=== PATIENT | male | born 1980 | race Caucasian/White ===

== ENCOUNTER 2023-04-29 18:06 | Emergency (ER) | payer OTHER, MEDICAID, SELFPAY ==
[2023-04-29 18:19] VITALS: PULSE 83; RESP 16; TEMP 36.4; O2SAT 98; BMI 30.2
--- NOTE | 2023-04-29 19:03 | CTR_ITS ---
PROCEDURE INFORMATION: Exam: CT Abdomen And Pelvis Without Contrast Exam date and time: 04/29/2023 7:14 PM Age: 42 years old Clinical indication: Abdominal pain; Flank; Left; Additional info: L flank pain TECHNIQUE: Imaging protocol: Computed tomography of the abdomen and pelvis without contrast. Radiation optimization: All CT scans at this facility use at least one of these dose optimization techniques: automated exposure control; mA and/or kV adjustment per patient size (includes targeted exams where dose is matched to clinical indication); or iterative reconstruction. COMPARISON: No relevant prior studies available. RADIATION DOSE METRICS: Total DLP (mGy-cm): 728 FINDINGS: Lungs: Emphysematous changes. Bilateral atelectasis. Liver: Normal. No mass. Gallbladder and bile ducts: Normal. No calcified stones. No ductal dilation. Pancreas: Normal. No ductal dilation. Spleen: Spleen enlarged to 14.8 cm. Adrenal glands: Normal. No mass. Kidneys and ureters: Normal. No hydronephrosis. Stomach and bowel: Prominent fluid in the small bowel may reflect an enteritis. Diverticulosis without diverticulitis. Appendix: No evidence of appendicitis. Intraperitoneal space: Unremarkable. No free air. No significant fluid collection. Vasculature: Unremarkable. No abdominal aortic aneurysm. Lymph nodes: Scattered subcentimeter short axis nonspecific inguinal lymph nodes bilaterally. Urinary bladder: Unremarkable as visualized. Reproductive: Unremarkable as visualized. Bones/joints: Unremarkable. No acute fracture. Soft tissues: Unremarkable. CT/CT kidney stone [id number] IMPRESSION: 1. Prominent fluid in the small bowel may reflect an enteritis. 2. Emphysematous changes. 3. Bilateral atelectasis. 4. Spleen enlarged to 14.8 cm. 5. Diverticulosis without diverticulitis. 6. Scattered subcentimeter short axis nonspecific inguinal lymph nodes bilaterally.
--- NOTE | 2023-04-29 19:04 | ED_ITS ---
HPI - Back Pain/Injury 2 General: Chief Complaint: Back Pain/Injury Stated Complaint: back pain low left Time Seen by Provider: 04/29/23 18:08 Source: patient Mode of arrival: ambulatory Limitations: no limitations History of Present Illness: Patient is a 42-year-old male presents to ED today with complaint of left flank pain over the past 2 to 3 weeks. Patient states at some point he was seen at a facility [facility] and had blood work, UA, and x-ray imaging performed. Patient states his UA showed hematuria. He states he is still awaiting results of the x-rays. He states they scheduled him for a CT scan to further evaluate for the presence of a possible urolithiasis but he has yet to get this done. Patient states he continues to have discomfort. He is not complaining of dysuria, frequency, urgency or any visible hematuria. Denies nausea or vomiting. He is not having any midline back pain or radicular symptoms. MD elicited complaint: back pain Onset (ago): week(s) Timing: constant Severity: moderate Similar Symptoms Previously: No Location: left flank Radiation: none Exacerbating factors: movement Relieving factors: none Associated symptoms: Reports no associated symptoms; Deny abdominal pain, chills, dysuria, fatigue, fever(s) or urinary urgency Work related injury: No Review of Systems 2 Const: Denies: fever(s), chills, body aches, fatigue or malaise Card: Denies: chest pain Resp: Denies: dyspnea GI: Denies: abdominal pain : Reports: flank pain; Denies: difficulty urinating, dysuria, urinary frequency, urinary urgency or urinary hesitancy Musc: Reports: back pain; Denies: neck pain, extremity pain, extremity swelling, joint pain or joint swelling Skin/Breast: Denies: rash Neuro: Denies: headache(s), numbness in extremities, weakness in extremities or sensory changes Physical Exam 2 Const: COMMON NORMALS: no acute distress, patient oriented x3, no limitations, alert and well nourished GENERAL APPEARANCE: cooperative O RIENTATION/CONSCIOUSNESS: Yes awake, Yes oriented to person, Yes oriented to place and Yes oriented to time Resp: COMMON NORMALS: normal respiratory effort and clear to auscultation bilaterally AUSCULTATION: clear to auscultation bilaterally Cardio: COMMON NORMALS: regular rate and regular rhythm RATE: regular rate RHYTHM: regular rhythm GI: COMMON NORMALS: Normal to inspection, nondistended, normoactive bowel sounds present, Soft to palpation, non-tender and no masses PALPATION: Yes Soft to palpation : BLADDER/KIDNEY EXAM: Yes CVA tenderness on the left (just below L CVA) Back/Pelvis: COMMON NORMALS: thoracic and lumbar spine normal to inspection and no thoracic nor lumbar tenderness GENERAL BACK: Yes CVA tenderness P SUSY: Yes buttocks normal and No sciatic notch tenderness SACROILIAC JOINTS: Yes SI joints normal SACRUM: no tenderness COCCYX: no tenderness BACK IMAGE (MALE): 1. back pain; reproducible with palpation Extremity: COMMON NORMALS: normal to inspection GENERAL: Yes normal exam except as noted Neuro: COMMON NORMALS: patient oriented x3, moves all extremities, no focal motor deficits, no sensory deficits noted and gait normal S ENSORIUM/ORIENTATION: Yes alert, Yes oriented to person, Yes oriented to place and Yes oriented to time GAIT: Yes Normal gait present Psych: ACTIVITY/MOTOR BEHAVIOR: Yes psychomotor agitation and Yes hyperactivity Skin: COMMON NORMALS: no rashes or lesions noted GENERAL SKIN EXAM: no rashes or lesions noted Course 2 Vital Signs: Vital signs: Vital Signs Temperature 97.5 F L 04/29/23 18:19 Pulse Rate 83 04/29/23 18:19 Respiratory Rate 16 04/29/23 18:19 Pulse Oximetry 98 04/29/23 18:19 Oxygen Delivery Me thod Room Air 04/29/23 18:19 MDM - Back Pain/Injury Medical Decision Making CT scan is essentially normal apart from some incidental findings. They did comment on a possible enteritis. This does not fit patient's symptoms clinically. He now tells me pain has been present closer to 2 months. At this time we will treat him with muscle relaxers, steroids, anti-inflammatories as I suspect this is musculoskeletal. 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 Recommend he follow-up with his primary care provider. He did refuse blood work today. UA was also unable to be collected. Medical Records I reviewed the patient's medical records. Labs Radiology Impressions Abdomen/Pelvis CT 04/29/23 19:03 IMPRESSION: 1. Prominent fluid in the small bowel may reflect an enteritis. 2. Emphysematous changes. 3. Bilateral atelectasis. 4. Spleen enlarged to 14.8 cm. 5. Diverticulosis without diverticulitis. 6. Scattered subcentimeter short axis nonspecific inguinal lymph nodes bilaterally. All radiology interpretation(s) finalized by discharge Discharge Plan Discharge Patient Disposition: Home Clinical Impression: Left-sided back pain Qualifiers: Back pain location: low back pain Chronicity: acute Sciatica presence: without sciatica Qualified Code(s): M54.50 - Low back pain, unspecified Condition: Stable Prescriptions: New methocarbamol 500 mg tablet 1,000 mg PO Q8H Qty: 30 0RF ibuprofen 800 mg tablet 800 mg PO Q8H PRN (Reason: pain) Qty: 20 0RF Medrol (Usama) 4 mg tablets,dose pack See Rx Instructions .ROUTE .COMPLEX Qty: 21 0RF Rx Instructions: orally per package directions Discharge Orders: Discharge ED (Routine); Ordered 04/29/23 Ordered By: Maggie Harris Activity Restrictions/Additional Instructions: As we discussed please follow-up with your primary care provider for further evaluation management of the pain. We discussed incidental findings in regards to your CT scan. These may be followed up by your primary care provider as well. 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
== END 2023-04-29 20:47 | disposition home or self-care (01) ==
PROVIDERS: Emergency Provider Physician Assistant; PCP Nurse Practitioner Family
DX: M54.50 Low back pain, unspecified (principal)
CPT/HCPCS: 74176; 99284

== ENCOUNTER 2024-11-11 14:22 | Emergency (ER) | payer OTHER, SELFPAY ==
--- OUTSIDE RECORDS SUMMARY | 2024-11-11 14:28 | XMS_ITS | Encounter Summary ---
Author Organization [facility] Address [address] [place] [address] Care Team Providers Care Trailer Chief Name Role Phone Nikolas Rodriguez MD Primary Care Provider [phone] Encounter Details Date Type Department Care Team (Late Contact Info) Description 11/08/2024 External Device Data [facility] ABSTRACTION Provider, Abstract NO ADDRESS ON FILE Social History Tobacco Use Types Packs/Day Years Used Date Smoking Tobacco: Former Cigarettes Smokeless Tobacco: Never Alcohol Use Standard Drinks/Week Comments Not Currently 0 (1 standard drink = 0.6 oz pur e alcohol) Feeling Safe Answer Date Recorded Are you in a relationship wi th someone who hurts you emotionally and/or physically? 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 Contact Info) Description 11/15/2024 1:30 PM CDT Office Visit [facility] [address] [place] [address] Talya Vaz NP [address] [place] [address] documented as of this encounter Visit Diagnoses Not on filedocumented in this encounter Care Teams Trailer Chief Relationship Specialty Start Date End Date Nikolas Rodriguez MD [address] [address] PCP - General Family Practice 08/12/24 documented as of this encounter
--- OUTSIDE RECORDS SUMMARY | 2024-11-11 14:28 | XMS_ITS | Clinical Summary ---
Author Organization [facility] Address [address] [place] [address] Phone Care Team Providers Care Shuttlecock Assembler Name Role Phone Unavailable Primary Care Provider Unavailabl e Allergies No known active allergies Medications No known medications Social History Tobacco Use Types Packs/Day Years Used Date Smoking Tobacco: Every Day Cigarettes Smokeless Tobacco: Never Alcohol Use Standard Drinks/Week Comments Yes 0 (1 standard drink = 0.6 oz pur e alcohol) occasional Sex and Gender Information Value Date Recorded Sex Assigned at Not on file Legal Sex Male 4:11 PM CDT Gender Identity Not on file Sexual Orientation Not on file Last Filed Vital Signs Vital Sign Reading Time Taken Comments Blood Pressure 111/78 07/11/2020 6:57 PM CDT Pulse - - Temperature 36.3 C (97.4 F) 07/11/2020 4:57 PM CDT Respiratory Rate 18 07/11/2020 6:57 PM CDT Oxygen Saturation 95% 07/11/2020 6:57 PM CDT Inhaled Oxygen Concentration - - Weight 85.7 kg (188 lb 15 oz) 07/11/2020 4:57 PM CDT Height 177.8 cm (5' 10 ) 07/11/2020 4:57 PM CDT Body Mass Index 27.11 07/11/2020 4:57 PM CDT Plan of Treatment Health Maintenance Due Date Last Done Comments DTAP/TDAP/TD VACCINES (1 - Tdap) 1997 HEPATITIS B VACCINES (1 of 3 - 19+ 3-dose series) 02/1997 HPV VACCINES (1 - 3-dose SCDM series) 2005 COLORECTAL SCREENING 11/24/2023 Colorectal Cancer Screening 11/24/2023 FIT-DNA Q 3 years 11/24/2023 FIT/FOBT Q 1 year 11/24/2023 Flex Sig/CT Colonography Q 5 years 11/24/2023 INFLUENZA VACCINE (#1) 2024
--- OUTSIDE RECORDS SUMMARY | 2024-11-11 14:28 | XMS_ITS | Encounter Summary ---
Author Organization [facility] Address 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 Gender Identity Not on file Sexual Orientation Not on file documented as of this encounter Plan of Treatment Upcoming Encounters Date Type Department Care Team ([facility] Contact Info) Description 11/15/2024 1:30 PM CDT Office Visit [facility] [address] [place] [address] Talya Vaz NP [address] [place] [address] documented as of this encounter Visit Diagnoses Not on filedocumented in this encounter Care Teams Filing Or Registry Clerk Relationship Specialty Start Date End Date Nikolas Rodriguez MD [address] [address] PCP - General Family Practice 08/12/24 documented as of this encounter
--- OUTSIDE RECORDS SUMMARY | 2024-11-11 14:28 | XMS_ITS | Encounter Summary ---
Author Organization [facility] Address 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 I met with Alonso on the phone where he was unable to answer at this time. I left a message with a question concerning his Medicaid application and left call back information.[facility] will follow up in 4 days to review progress. Follow-up reminder is scheduled for November 08, 2024. Alonso will contact [facility] if he has any questions or concerns before the next outreach. Riccardo Gan Community Health Worker I [facility] [address] [address] documented in this encounter Plan of Treatment Upcoming Encounters Date Type Department Care Team (Late st Contact Info) Description 11/15/2024 1:30 PM CDT Office Visit [facility] [address] [place] [address] Talya Vaz NP [address] [place] [address] documented as of this encounter Visit Diagnoses Not on filedocumented in this encounter Care Teams Gore Maker Relationship Specialty Start Date End Date Nikolas Rodriguez MD [address] [address] PCP - General Family Practice 08/12/24 documented as of this encounter
--- OUTSIDE RECORDS SUMMARY | 2024-11-11 14:28 | XMS_ITS | Encounter Summary ---
Author Organization [facility] Address 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 Gender Identity Not on file Sexual Orientation Not on file documented as of this encounter Plan of Treatment Upcoming Encounters Date Type Department Care Team ([facility] Contact Info) Description 11/15/2024 1:30 PM CDT Office Visit [facility] [address] [place] [address] Talya Vaz NP [address] [place] [address] documented as of this encounter Visit Diagnoses Not on filedocumented in this encounter Care Teams Character Artist Relationship Specialty Start Date End Date Nikolas Rodriguez MD [address] [address] PCP - General Family Practice 08/12/24 documented as of this encounter
--- OUTSIDE RECORDS SUMMARY | 2024-11-11 14:28 | XMS_ITS | Clinical Summary ---
Author Organization Nellie En[facility] Address [address] [facility] [address] [place] [address] Phone Care Team Providers Care Cath Lab Technologist Name Role Phone Nikolas Rodriguez MD Primary Care Provider [phone] Allergies No known active allergies Medications sildenafiL (VIAGRA) 100 mg tabletIndication s:Erectile dysfunction, unspecified erectile dysfunction type Take 1 Tablet (100 mg) by mouth 1 time daily as needed for Erectile Dysfunction. 24 Tablet 11 5 Active oxyCODONE (ROXICODONE) 5 mg tabletIndication s:Acute left-sided low back pain with bilateral sciatica,Lumbar disc herniation Take 1 Tablet (5 mg) by mouth every 4 hours as needed for Pain, Break-Through . Max Daily Amount: 30 mg 20 Tablet 5 Active lidocaine (LIDODERM) 5 % Adhesive Patch, Medicated Apply 1 Patch to affected area every 24 hours for 10 days. 10 Patch 5 11/14/19 25 Active Active Problems Problem Noted Date Diagnosed Date Possible exposure to STD 04/17/2022 Encounters Date Type Department Care Team Description 11/09/2024 External Device Data [facility] ABSTRACTION Provider, Abstract 11/08/2024 External Device Data [facility] ABSTRACTION Provider, Abstract 11/08/2024 External Device Data [facility] ABSTRACTION Provider, Abstract 11/04/2024 Patient Outreach [facility] and Access [id number] [facility] [address] [place] [address] Riccardo Gan Insurance Coverage; Healthcare Access 11/02/2024 6:53 PM CDT - 11/03/2024 1:57 AM CDT Emergency [facility] Emergency Department [address] [place] [phone] Yennifer Boyer MD Acute left-sided low back pain with bilateral sciatica (Primary Dx); Lumbar disc herniation Discharge Disposition: Home or Self Care 11/02/2024 8:27 AM CDT - 11/02/2024 2:02 PM CDT Emergency [facility] Emergency Medicine [address] [facility] [address] [place] [address] Rahat De Dios DO Acute bilateral low back pain with bilateral sciatica (Primary Dx) Discharge Disposition: Acute Care Hospital 11/02/2024 Patient Outreach [facility] and [address] [place] [phone] Riccardo Gan Referral; Healthcare Access; Insurance Coverage 11/02/2024 Travel 08/16/2024 External Device Data [facility] ABSTRACTION Provider, Abstract 08/16/2024 External Device Data [facility] ABSTRACTION Provider, Abstract 08/16/2024 External Device Data [facility] ABSTRACTION Provider, Abstract 08/12/2024 9:20 AM CDT Office Visit [facility] Medicine [address] [phone] Amy Gan, VLADISLAV Erectile dysfunction, unspecified erectile dysfunction type (Primary Dx); Encounter for colorectal cancer screening; Elevated blood pressure reading without diagnosis of hypertension from Last 3 Months Social History Tobacco Use Types Packs/Day Years Used Date Smoking Tobacco: Former Cigarettes Smokeless Tobacco: Never Tobacco Cessation:Counseling Given: Not Answered Alcohol Use Standard Drinks/Week Comments Not Currently 0 (1 standard drink = 0.6 oz pur e alcohol) Feeling Safe Answer Date Recorded Are you in a relationship wi th someone who hurts you emotionally and/or physically? No 11/02/2024 Sex and Gender Information Value Date Recorded Sex Assigned at Not on file Legal Sex Male 11:28 PM [employer]FT [employer]PER[employer] Gender Identity Not on file Sexual Orientation Not on file Last Filed Vital Signs Vital Sign Reading Time Taken Comments Blood Pressure 157/143 11/02/2024 10:00 PM CDT Pulse 79 11/02/2024 10:00 PM CDT Temperature 37 C (98.6 F) 11/02/2024 4:41 PM CDT Respiratory Rate 20 11/02/2024 10:00 PM CDT Oxygen Saturation 96% 11/02/2024 10:00 PM CDT Inhaled Oxygen Concentration - - Weight 83.9 kg (185 lb) 11/02/2024 4:41 PM CDT Height 177.8 cm (5' 10 ) 11/02/2024 4:41 PM CDT Body Mass Index 26.54 11/02/2024 4:41 PM CDT Plan of Treatment Upcoming Encounters Date Type Department Care Team (Late st Contact Info) Description 11/15/2024 1:30 PM CDT Office Visit [facility] Neurosurgery [address] [place] [address] Talya Vaz NP [address] [place] [address] Health Maintenance Due Date Last Done Comments Pre-Diabetes and Diabetes Screening 1978 DTAP/TDAP/TD VACCINES (1 - Tdap) 1997 HEPATITIS B VACCINES (1 of 3 - 19+ 3-dose series) 02/1997 HPV VACCINES (1 - 3-dose SCDM series) 2005 COLORECTAL SCREENING 11/24/2023 Colorectal Cancer Screening 11/24/2023 FIT-DNA Q 3 years 11/24/2023 FIT/FOBT Q 1 year 11/24/2023 Flex Sig/CT Colonography Q 5 years 11/24/2023 INFLUENZA VACCINE (#1) 2024 Procedures Procedure Name Priority Date/Time Associated Diagnosis Comments MRI LUMBAR WO CONTRAST Stat 11:59 PM CDT URINALYSIS W/REFLEX MICROSCOPIC Stat 11/02/2024 11:[address] LUMBAR SPINE WO CONTRAST Stat 11/02/2024 9:[address] ABDOMEN PELVIS W CONTRAST Stat 11/02/2024 9:47 AM CDT MAGNESIUM LEVEL Stat 11/02/2024 8:44 AM CDT C-REACTIVE PROTEIN Stat 11/02/2024 8: 44 AM CDT COMPREHENSIVE METABOLIC PANEL Stat 11/02/2024 8:44 AM CDT CBC WITH DIFFERENTIAL Stat 11/02/2024 8:44 AM CDT from Last 3 Months Results * MRI LUMBAR WO CONTRAST (11/02/2024 11:59 PM CDT) Anatomical Region Laterality Modality Spine Magnetic Resonan ce 11/02/2024 11:5 9 PM CDT Impressions 11/03/2024 1:26 AM CDT IMPRESSION: No acute osseous abnormality. No significant stenoses. At the L4-5 level there is a small central disc protrusion with annular fissuring along with mild thecal sac effacement. Nonspecific mild facet capsular distention at L4-5 bilaterally. Narrative 11/03/2024 1:26 AM CDT Exam: MRI LUMBAR WO CONTRAST Date/Time of Exam: 11/02/2024 11:59 PM Reason For Exam: low back pain rule out discitis. Diagnosis: Acute left-sided low back pain with bilateral sciatica; Acute left-sided low back pain with bilateral sciatica. Technique: MRI of the lumbar spine was performed without the administration of intravenous contrast. Findings: Findings: Alignment: Anatomic alignment without spondylolisthesis. Vertebral body heights: Normal vertebral body heights. No compression deformities. Marrow signal: No infiltrative lesions. No acute injury. No suspicious osseous lesion. No aggressive osseous process. Soft tissues: No pathologic edema, fluid collection or mass. Cord/cauda equina: Conus medullaris terminates in expected position. Visualized cord is normal in signal and caliber. Normal caliber and distribution of cauda equina. Canal/foramina: Normal. T12-L1: No disc herniation or stenosis. L1-L2: No disc herniation or stenosis. L2-L3: No disc herniation or stenosis. L3-L4: No disc herniation or stenosis. L4-L5: Small central disc protrusion with annular fissuring. Mild thecal sac effacement. No significant neural foraminal stenosis. Nonspecific mild facet capsular distention is seen bilaterally. L5-S1: No disc herniation or stenosis. Other: Visualized sacrum and pelvis are without signal abnormality. Visualized intra-abdominal structures grossly unremarkable. Procedure Note Tito Santos MD - 11/03/2024 Exam: MRI LUMBAR WO CONTRAST Date/Time of Exam: 11/02/2024 11:59 PM Reason For Exam: low back pain rule out discitis. Diagnosis: Acute left-sided low back pain with bilateral sciatica; Acute left-sided low back pain with bilateral sciatica. Technique: MRI of the lumbar spine was performed without the administration of intravenous contrast. Findings: Findings: Alignment: Anatomic alignment without spondylolisthesis. Vertebral body heights: Normal vertebral body heights. No compression deformities. Marrow signal: No infiltrative lesions. No acute injury. No suspicious osseous lesion. No aggressive osseous process. Soft tissues: No pathologic edema, fluid collection or mass. Cord/cauda equina: Conus medullaris terminates in expected position. Visualized cord is normal in signal and caliber. Normal caliber and distribution of cauda equina. Canal/foramina: Normal. T12-L1: No disc herniation or stenosis. L1-L2: No disc herniation or stenosis. L2-L3: No disc herniation or stenosis. L3-L4: No disc herniation or stenosis. L4-L5: Small central disc protrusion with annular fissuring. Mild thecal sac effacement. No significant neural foraminal stenosis. Nonspecific mild facet capsular distention is seen bilaterally. L5-S1: No disc herniation or stenosis. Other: Visualized sacrum and pelvis are without signal abnormality. Visualized intra-abdominal structures grossly unremarkable. IMPRESSION: No acute osseous abnormality. No significant stenoses. At the L4-5 level there is a small central disc protrusion with annular fissuring along with mild thecal sac effacement. Nonspecific mild facet capsular distention at L4-5 bilaterally. us Wilbur CARDONA MR ORDERABLES Final Result * URINALYSIS WITH REFLEX MICROSCOPIC (11/02/2024 11:45 AM CDT) COLOR UA Yellow Pale to Dark Yellow 11/02/2024 11:54 AM CDT [facility] CLARITY UA Clear Clear 11/02/2024 11:54 AM CDT [facility] SPECIFIC GRAVITY UA 1.010 1.003 - 1.035 11/02/2024 11:54 AM CDT [facility] PH UA 5.5 5.0 - 8.0 11/02/2024 11:54 AM CDT [facility] LEUKOCYTE ESTERASE UA Negative Negative 11/02/2024 11:54 AM CDT [facility] NITRITE UA Negative Negative 11/02/2024 11:54 AM CDT [facility] PROTEIN UA Negative Negative 11/02/2024 11:54 AM CDT [facility] GLUCOSE UA Negative Negative 11/02/2024 11:54 AM CDT [facility] KETONES UA Negative Negative 11/02/2024 11:54 AM CDT [facility] UROBILINOGEN UA 0.2 <2.0 mg/dL 11:54 AM T [facility] BILIRUBIN UA Negative Negative 11/02/2024 11:54 AM CDT [facility] BLOOD UA Negative Negative 11/02/2024 11:54 AM T [facility] Urine URINE SPECIMEN OBTAINED BY CLEAN CATCH PROCEDURE / Unknown Collection / Unknown 11/02/2024 11:45 AM CDT 11/02/2024 11:52 AM CDT Rahat De Dios DO URINE ORDERABLES Final Re sult [facility] CLIA # [id number] [address] [place] [address] * CT LUMBAR SPINE WO CONTRAST (11/02/2024 9:48 AM CDT) Anatomical Region Laterality Modality Spine Computed Tomogra phy 11/02/2024 9:22 AM CDT Impressions 11/02/2024 10:34 AM CDT IMPRESSION: Please see below. Exam: CT LUMBAR SPINE WO CONTRAST Date/Time of Exam: 11/02/2024 9:48 AM Reason For Exam: Low back pain, cauda equina syndrome suspected. Diagnosis: See Reason for Exam. Technique: CT of the lumbar spine was performed prior without intravenous contrast. Contrast: None Findings: Normal lumbar lordosis. No acute fracture or aggressive osseous lesion. The retroperitoneal structures demonstrate no acute abnormality. The paraspinal musculature is unremarkable. L1-2: Patent spinal canal and neural foramen. L2-3: Patent spinal canal and neural foramen. L3-4: Symmetric disc bulge and bilateral facet arthropathy. Patent spinal canal and neural foramen. L4-5: Symmetric disc bulge and facet arthropathy. Mild narrowing of the lateral recesses. Mild bilateral neural foraminal narrowing. L5-S1: Patent spinal canal and neural foramen. IMPRESSION: Lower lumbar degenerative change with mild lateral recess and neuroforaminal narrowing. Consider MRI or CT myelogram if there is continued concern for cauda equina syndrome. Narrative Procedure Note Peterson Burciaga DO - 11/02/2024 IMPRESSION: Please see below. Exam: CT LUMBAR SPINE WO CONTRAST Date/Time of Exam: 11/02/2024 9:48 AM Reason For Exam: Low back pain, cauda equina syndrome suspected. Diagnosis: See Reason for Exam. Technique: CT of the lumbar spine was performed prior without intravenous contrast. Contrast: None Findings: Normal lumbar lordosis. No acute fracture or aggressive osseous lesion. The retroperitoneal structures demonstrate no acute abnormality. The paraspinal musculature is unremarkable. L1-2: Patent spinal canal and neural foramen. L2-3: Patent spinal canal and neural foramen. L3-4: Symmetric disc bulge and bilateral facet arthropathy. Patent spinal canal and neural foramen. L4-5: Symmetric disc bulge and facet arthropathy. Mild narrowing of the lateral recesses. Mild bilateral neural foraminal narrowing. L5-S1: Patent spinal canal and neural foramen. IMPRESSION: Lower lumbar degenerative change with mild lateral recess and neuroforaminal narrowing. Consider MRI or CT myelogram if there is continued concern for cauda equina syndrome. us Rahat De Dios DO CT ORDERABLES Final Res ult * CT ABDOMEN PELVIS W CONTRAST (11/02/2024 9:47 AM CDT) Anatomical Region Laterality Modality Abdomen Computed Tomogra phy 11/02/2024 9:26 AM CDT Impressions 11/02/2024 10:31 AM CDT IMPRESSION: Please see below. Exam: CT ABDOMEN PELVIS W CONTRAST Date/Time of Exam: 11/02/2024 9:47 AM Reason For Exam: Abdominal pain, acute, nonlocalized. Diagnosis: See Reason for Exam. Technique: CT of the abdomen and pelvis was performed following the administration of intravenous contrast. Contrast: IOPAMIDOL 61 % INTRAVENOUS SOLUTION (SINGLE USE VIAL) Given:95 mL. Comparison: None. FINDINGS: Lower Chest: There is no significant basilar pulmonary pathology. Aorta/Vasculature: The aorta is nonaneurysmal. Lymph Nodes: There is no retroperitoneal, abdominal or pelvic lymphadenopathy. Liver: There is an indeterminate low-attenuation lesion within the left hepatic lobe measuring 1.6 cm. There is a punctate low-attenuation lesion within the right hepatic lobe which is too small to characterize. Gallbladder and Biliary: The gallbladder and biliary tree are within normal limits. Spleen: The spleen is within normal limits. Pancreas: The pancreas is within normal limits. Adrenal Glands: The adrenal glands are within normal limits. Kidneys: There are subcentimeter renal cortical hypodensities which are too small to characterize likely reflecting cysts. There is no obstructive uropathy. Stomach: The stomach is within normal limits. Bowel: The bowel loops are normal in position and caliber. There is a moderate amount of stool. There are no focal inflammatory changes. Appendix: The appendix is within normal limits. Peritoneum: There is no free air or abnormal free fluid. Urinary Bladder: The urinary bladder is within normal limits. Pelvic Reproductive Structures: There is no significant pelvic reproductive structure pathology. Subcutaneous Soft Tissues: There is no significant subcutaneous soft tissue pathology. Bones: The osseous structures appear grossly intact. No suspicious osseous lesions are identified. IMPRESSION: No acute abdominopelvic pathology. Small indeterminate hepatic lesion; contrast-enhanced MRI could be obtained for further characterization if clinically indicated. Additional incidental findings as above. Narrative Procedure Note Bill Calvillo, DO - 11/02/2024 IMPRESSION: Please see below. Exam: CT ABDOMEN PELVIS W CONTRAST Date/Time of Exam: 11/02/2024 9:47 AM Reason For Exam: Abdominal pain, acute, nonlocalized. Diagnosis: See Reason for Exam. Technique: CT of the abdomen and pelvis was performed following the administration of intravenous contrast. Contrast: IOPAMIDOL 61 % INTRAVENOUS SOLUTION (SINGLE USE VIAL) Given:95 mL. Comparison: None. FINDINGS: Lower Chest: There is no significant basilar pulmonary pathology. Aorta/Vasculature: The aorta is nonaneurysmal. Lymph Nodes: There is no retroperitoneal, abdominal or pelvic lymphadenopathy. Liver: There is an indeterminate low-attenuation lesion within the left hepatic lobe measuring 1.6 cm. There is a punctate low-attenuation lesion within the right hepatic lobe which is too small to characterize. Gallbladder and Biliary: The gallbladder and biliary tree are within normal limits. Spleen: The spleen is within normal limits. Pancreas: The pancreas is within normal limits. Adrenal Glands: The adrenal glands are within normal limits. Kidneys: There are subcentimeter renal cortical hypodensities which are too small to characterize likely reflecting cysts. There is no obstructive uropathy. Stomach: The stomach is within normal limits. Bowel: The bowel loops are normal in position and caliber. There is a moderate amount of stool. There are no focal inflammatory changes. Appendix: The appendix is within normal limits. Peritoneum: There is no free air or abnormal free fluid. Urinary Bladder: The urinary bladder is within normal limits. Pelvic Reproductive Structures: There is no significant pelvic reproductive structure pathology. Subcutaneous Soft Tissues: There is no significant subcutaneous soft tissue pathology. Bones: The osseous structures appear grossly intact. No suspicious osseous lesions are identified. IMPRESSION: No acute abdominopelvic pathology. Small indeterminate hepatic lesion; contrast-enhanced MRI could be obtained for further characterization if clinically indicated. Additional incidental findings as above. us Rahat De Dios DO CT ORDERABLES Final Res ult * (ABNORMAL) CBC WITH DIFFERENTIAL (11/02/2024 8:44 AM CDT) WBC 11.1(H) 4.2 - 9.1 K/uL 11/02/2024 9:00 AM CDT [facility] RBC 5.25 4.63 - 6.08 M/uL 11/02/2024 9:00 AM T [facility] HEMOGLOBIN 16.5 13.7 - 17.5 g/dL 11/02/2024 9:00 AM [facility] HEMATOCRIT 46.7 40.1 - 51.0 % 11/02/2024 9:00 AM [facility] MCV 89.0 79.0 - 92.2 fL 11/02/2024 9:00 AM [facility] MCH 31.4 25.7 - 32.2 pg 11/02/2024 9:00 AM [facility] MCHC 35.3 32.3 - 36.5 g/dL 11/02/2024 9:00 AM [facility] RDW 12.4 11.0 - 14.5 % 11/02/2024 9:00 AM [facility] RDW-STDEV 40.8 36.9 - 56.9 fL 11/02/2024 9:00 AM [facility] PLATELETS 218 130 - 400 K/uL 11/02/2024 9:00 AM [facility] MPV 7.5(L) 10.0 - 14.8 fL 11/02/2024 9:00 AM [facility] NEUTROPHILS 69(H) 34 - 68 % 11/02/2024 9:00 AM [facility] LYMPHOCYTES 20(L) 22 - 53 % 11/02/2024 9:00 AM [facility] MONOCYTES 8 5 - 12 % 11/02/2024 9:00 AM [facility] EOSINOPHILS 2 1 - 7 % 11/02/2024 9:00 AM [facility] BASOPHILS 0 0 - 1 % 11/02/2024 9:00 AM [facility] IMMATURE GRANULOCYTES 0 % 11/02/2024 9:00 AM [facility] NEUTROPHIL ABSOLUTE 7.68(H) 1.78 - 5.38 K/uL 11/02/2024 9:00 AM [facility] LYMPHOCYTE ABSOLUTE 2.27 1.20 - 3.40 K/uL 11/02/2024 9:00 AM [facility] MONOCYTE ABSOLUTE 0.90(H) 0.30 - 0.82 K/uL 11/02/2024 9:00 AM CDT [facility] EOSINOPHIL ABSOLUTE 0.20 0.04 - 0.54 K/uL 11/02/2024 9:00 AM CDT [facility] BASOPHILS ABSOLUTE 0.03 0.01 - 0.08 K/uL 11/02/2024 9:00 AM CDT [facility] IMMATURE GRANULOCYTES ABSOLUTE 0.03 K/uL 11/02/2024 9:00 AM CDT [facility] Blood BLOOD SPECIMEN / Unknown Collection / Unknown 11/02/2024 8:44 AM CDT 11/02/2024 8:57 AM CDT Rahat De Dios DO HEMATOLOGY ORDERABLES Fin al Result Performing Organization Address City/[facility]/ZIP Co de Phone Number [facility] CLIA # [id number] [address] [place] [id number] * (ABNORMAL) C-REACTIVE PROTEIN (11/02/2024 8:44 AM CDT) CRP 5.0(H) <5.0 mg/L 11/02/2024 9:13 AM CDT [facility] Blood BLOOD SPECIMEN / Unknown Collection / Unknown 11/02/2024 8:44 AM CDT 11/02/2024 8:57 AM CDT Rahat De Dios DO CHEMISTRY ORDERABLES Lexi l Result [facility] CLIA # [id number] [address] [place] [id number] * MAGNESIUM LEVEL (11/02/2024 8:44 AM CDT) MAGNESIUM 1.9 1.6 - 2.6 mg/dL 11/02/2024 9:13 AM CDT [facility] Blood BLOOD SPECIMEN / Unknown Collection / Unknown 11/02/2024 8:44 AM CDT 11/02/2024 8:57 AM CDT us Rahat De Dios DO CHEMISTRY ORDERABLES Lexi sonam Result [facility] CLIA # [id number] [address] [place] [id number] * (ABNORMAL) COMPREHENSIVE METABOLIC PANEL (11/02/2024 8:44 AM CDT) SODIUM 135(L) 136 - 145 mmol/L 11/02/2024 9:13 AM [facility] POTASSIUM 4.9 3.5 - 5.1 mmol/L 11/02/2024 9:13 AM [facility] CHLORIDE 99 98 - 107 mmol/L 11/02/2024 9:13 AM [facility] CO2 27 22 - 29 mmol/L 11/02/2024 9:13 AM [facility] CALCIUM 10.2(H) 8.6 - 10.0 mg/dL 11/02/2024 9:13 AM [facility] BUN 14 6 - 20 mg/dL 11/02/2024 9:13 AM [facility] CREATININE 0.94 0.67 - 1.17 mg/dL 11/02/2024 9:13 AM [facility] GLUCOSE 99 74 - 99 mg/dL 11/02/2024 9:13 AM [facility] TOTAL PROTEIN 8.1 6.6 - 8.7 g/dL 11/02/2024 9:13 AM [facility] ALBUMIN 4.1 3.5 - 5.2 g/dL 11/02/2024 9:13 AM [facility] BILIRUBIN TOTAL 0.4 0.0 - 1.2 mg/dL 11/02/2024 9:13 AM [facility] ALKALINE PHOSPHATASE 35(L) 40 - 129 U/L 11/02/2024 9:13 AM [facility] AST 41 0 - 50 U/L 11/02/2024 9:13 AM [facility] ALT 76(H) 0 - 50 U/L 11/02/2024 9:13 AM CDT [facility] GFR >60 >=60 mL/min/1.7 3 sq meter 11/02/2024 9:13 AM T [facility] Comment:eGFR calculated with 2020 CKD-EPI equation. Vegetarian diet, extremely high or low muscle mass, and may affect results. Cystatin C with Glomerular Filtration Rate is a suitable alternative for these patients. ANION GAP 9 5 - 20 mmol/L 11/02/2024 9:13 AM CDT [facility] Blood BLOOD SPECIMEN / Unknown Collection / Unknown 11/02/2024 8:44 AM CDT 11/02/2024 8:57 AM CDT Rahat De Dios DO CHEMISTRY ORDERABLES Lexi l Result [facility] CLIA # [id number] [address] [id number] from Last 3 Months Care Teams Cath Lab Technologist Relationship Specialty Start Date End Date Nikolas Rodriguez MD [address] [phone] PCP - General Family Practice 08/12/24
[2024-11-11 14:29] VITALS: BP 147/98; PULSE 98; RESP 14; TEMP 36.5; O2SAT 98; BMI 26.5
--- NOTE | 2024-11-11 15:33 | ED_ITS ---
HPI - Eye Problem General: Chief complaint: Eye Problems Stated complaint: eye discharge / blurred vision Time Seen by Provider: 11/11/24 15:29 Source: patient Mode of arrival: ambulatory Limitations: no limitations History of Present Illness: 43-year-old male states he has had redne ss drainage burning to bilateral eyes for roughly 1 week. States had some mild blurry visions denies any injuries. H e states he has pain he rates a 4 out of 10. Denies any headaches denies any fevers Associated symptoms: Denies fever(s) Related Data Previous Rx's ?Medication ?Instructions ?Recorded ibuprofen 800 mg tablet 800 mg PO Q8H PRN pain #20 t abs 04/29/23 methocarbamol 500 mg tablet 1,000 mg (2 x 500 mg) PO Q 8H #30 04/29/23 tabs methylprednisolone 4 mg tablets in See Rx Instructions PO .COMPLEX 04/29/23 a dose pack (Medrol ([place]ama)) #21 ea moxifloxacin 0.5 % eye drops 1 drp ophthalmic (eye) TI D 7 days 11/11/24 #3 mL Allergies Allergy/AdvReac Type Severity Reaction Status Date / Time No Known Allergies Allergy Verified 11/11/24 14:33 Review of Systems Const: Denies: fever(s) Eyes: Reports: blurry vision Physical Exam Const: COMMON NORMALS: no acute distress, patient oriented x3 and healthy appearing HENMT: COMMON NORMALS: normocephalic and atraumatic HEAD & SCALP: normocephalic and atraumatic Eye: COMMON NORMALS: Equal, round and reactive pupils present and EOMs intact bilaterally PUPIL: Yes Equal, round and reactive pupils present OTHER: Bilateral conjunctivitis erythema under fluorescein no signs of abrasions or dendrites or corneal ulcer Neck/C-Spine: COMMON NORMALS: full ROM and supple Chest: COMMONS NORMALS: normal inspection of the chest Resp: COMMON NORMALS: normal respiratory effort Cardio: COMMON NORMALS: regular rate RATE: regular rate Extremity: COMMON NORMALS: normal to inspection and full ROM Neuro: COMMON NORMALS: patient oriented x3, moves all extremities and no focal motor deficits Psych: COMMON NORMALS: mental status grossly normal, Normal thought process present and cooperative THOUGHT PROCESS: Normal thought process present Skin: COMMON NORMALS: no rashes or lesions noted and no wounds GENERAL SKIN EXAM: no rashes or lesions noted Course Vital Signs: Vital signs: Vital Signs Temperature 97.7 F 11/11/24 14:29 Pulse Rate 98 11/11/24 14:29 Respiratory Rate 14 11/11/24 14:29 Blood Pressure 147/98 11/11/24 14:29 Pulse Oximetry 98 11/11/24 14:29 MDM - Eye Problem Medical Decision Making Patient presents with bilateral eye redness likely viral versus bacterial conjunctivitis no signs of ulcer or abrasions vision is normal here he stable for discharge at this time we will place him on moxifloxacin eyedrops did inform him on instructions informed him to return if worsening follow-up with PCP he understands agrees to plan. Differential Diagnosis Likely corneal abrasion, conjunctivitis, acute iritis, hyphema, periorbital cellulitis, subconjunctival hemorrhage and corneal ulcer No radiology studies performed this visit Discharge Plan Discharge Patient Disposition: Home Clinical Impression: Conjunctivitis Condition: Stable Prescriptions: New moxifloxacin 0.5 % drops 1 drp ophthalmic (eye) TID 7 Days Qty: 3 0RF No Action methocarbamol 500 mg tablet 1,000 mg PO Q8H Qty: 30 0RF ibuprofen 800 mg tablet 800 mg PO Q8H PRN (Reason: pain) Qty: 20 0RF Medrol ([place]ama) 4 mg tablets,dose pack See Rx Instructions .ROUTE .COMPLEX Qty: 21 0RF Rx Instructions: orally per package directions Discharge Orders: Discharge ED (Routine); Ordered 11/11/24 Ordered By: Jones Herr Referrals: Theresa Shell, [facility] [Primary Care Provider, Nurse Practitioner] - 4-7 days Discharge Diet: Advance as tolerated Discharge Activity: Resume usual activity Patient Instructions: Conjunctivitis (ED) Print Language: Upper Sorbian Coding Level of Care Code ED [employer] for [facility] [employer]
[2024-11-11] MEDS: tetracaine 0.5% Op Soln 4 mL Btl 1 DROP EYE-BOTH (15:39)
== END 2024-11-11 16:00 | disposition home or self-care (01) ==
PROVIDERS: Emergency Provider Emergency Medicine; PCP Nurse Practitioner Family
DX: H10.9 Unspecified conjunctivitis (principal)
CPT/HCPCS: 99283